=== PATIENT | male | born 1995 | race Caucasian/White ===

== ENCOUNTER 2020-05-26 12:43 | Emergency (ER) | payer OTHER ==
[~2020-05-26] VITALS: Ht 170.2 cm; Wt 76.0 kg
[2020-05-26] MEDS ORDERED: AMIT25TA17 PO (12:54)
--- OUTSIDE RECORDS SUMMARY | 2020-05-26 13:21 | CCD | Continuity of Care Document ---
Author Author Galo MILLER M.D. Organization Unknown Address [address] [place] [id number] Phone [phone] Care Team Providers Care Materials And Corrosion Engineer Name Role Phone Cinthya Armendariz M.D. AUTM [phone] Problems Active Problems Provider Date Postconcussion syndrome Danish Miller M.D. Onset: 021 Migraine Danish Miller M.D. Onset: 05/05/2020 Social History Type Date Description Comments Sex Unknown Tobacco Use Start: Unknown Patient has never smoked Allergies, Adverse Reactions, Alerts Description No Known Drug Allergies Medications Active Medications SIG Qnty Indications Ordering Provide r Date Prednisone 20mg Tablets take 60mg x2days, then 40mg x2 day, then 20mg x2days, then 10mg x2days. then stop. 13tabs Danish Miller M.D. 05/05/2020 Amitriptyline HCL 25mg Tablets take one tablet at bedtime 30tabs Danish Miller M.D. 05/05/19 21 Immunizations Description No Information Available Vital Signs Date Vital Result Comment 05/05/2020 12:46pm Respiratory Rate 12 /min Height 68 inches 5'8" Weight 160.00 lb BMI (Body Mass Index) 24.3 kg/m2 [place] Body Weight 154 lb Results Description No Information Available Procedures Description No Information Available Medical Devices Description No Information Available Encounters Description No Information Available Assessments Date Code Description Provider 05/05/2020 G43.719 Chronic migraine wit hout aura, intractable, without status migrainosus Danish Miller M.D. 05/05/2020 F07.81 Postconcussional syndrome Danish Miller M.D. 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 05/05/2020 R41.82 Altered mental status, unspecifi ed Danish Miller M.D. 05/05/2020 M54.2 Cervicalgia Danish Miller M.D. Plan of Treatment Future Appointment(s):* 06/23/2020 9:45 am - EEG at Main office - [place] Functional Status Description No Information Available Mental Status Description No Information Available Referrals Description No Information Available
--- OUTSIDE RECORDS SUMMARY | 2020-05-26 13:21 | CCD ---
Continuity of Care Document (CCD) Created on: 05/07/2020 Galo Loaiza External Reference #: [id number] : 1995 Sex: Male Author Author Galo MILLER M.D. Organization Unknown Address [address] [place] [id number] Phone [phone] Problems Active Problems Provider Date Postconcussion syndrome [...] 20mg x2days, then 10mg x2days. then stop. 13tarocael Miller M.D. 05/05/2020 Amitriptyline HCL 25mg Tablets take one tablet at bedtime 30tabs Danish Miller M.D. 05/05/19 21 Immunizations Description No Information Available Vital Signs Date Vital Result Comment 05/05/2020 12:46pm Respiratory Rate 12 /min Height 68 inches 5'8" Weight 160.00 lb BMI (Body Mass Index) 24.3 kg/m2 [place] Body Weight 154 lb Results Description No Information Available Procedures Description No Information Available Medical Devices Description No Information Available Encounters Type Date Location Provider Dx Diagnosis Office Visit 05/05[place]2020 12[place] G43.719 Chronic migraine w/o aura, intractable, w/o stat migr F07.81 Postconcussional syndrome R41.1 Anterograde amnesia R41.82 Altered mental status, unspe cified M54.2 Cervicalgia Assessments Date Code Description Provider 05/05/2020 G43.719 Chronic migraine wit hout aura, intractable, without status migrainosus Danish Miller M.D. 05/05/2020 F07.81 Postconcussional syndrome Danish Miller M.D. 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 05/05/2020 R41.82 Altered mental status, unspecifi ed Danish Miller M.D. 05/05/2020 M54.2 Cervicalgia Danish Miller M.D. Plan of Treatment Future Appointment(s):* 07/16/2020 11:30 am - Danish Miller M.D. at [facility] * 06/23/2020 9:45 am - EEG at [facility] Functional Status Description No Information Available Mental Status Description No Information Available Referrals Refer to Dr Reason for Referral Status Appt Date Danish Miller M.D. Created [address] [place] [address] [phone]
--- OUTSIDE RECORDS SUMMARY | 2020-05-26 13:21 | CCD ---
Author Author [facility] Organization [facility] Address Unknown Phone Unavailable Care Team Providers Care Meatcutter Name Role Phone Loli Rogers MD Unavailable Unavailable Loli Rogers MD Unavailable Unavailable Loli Rogers MD Unavailable Unavailable Loli Rogers MD Unavailable Unavailable Loli Rogers MD Unavailable Unavailable Loli Rogers MD Unavailable Unavailable Loli Rogers MD Unavailable Unavailable Loli Rogers MD Unavailable Unavailable Loli Rogers MD Unavailable Unavailable Loli Rogers MD Unavailable Unavailable Loli Rogers MD Unavailable Unavailable Loli Rogers MD Unavailable Unavailable Loli Rogers MD Unavailable Unavailable Loli Rogers MD Unavailable Unavailable Loli Rogers MD Unavailable Unavailable Loli Rogers MD Unavailable Unavailable Loli Rogers MD Unavailable Unavailable Loli Rogers MD Unavailable Unavailable Loli Rogers MD Unavailable Unavailable Loli Rogers MD Unavailable Unavailable Loli Rogers MD Unavailable Unavailable Loli Rogers MD Unavailable Unavailable Loli Rogers MD Unavailable Unavailable Loli Rogers MD Unavailable Unavailable Loli Rogers MD Unavailable Unavailable Loli Rogers MD Unavailable Unavailable Loli Rogers MD Unavailable Unavailable Loli Rogers MD Unavailable Unavailable Loli Rogers MD Unavailable Unavailable Loli Rogers MD Unavailable Unavailable Loli Rogers MD Unavailable Unavailable Loli Rogersah Unavailable Unavailable Loli Rogers MD Unavailable Unavailable Loli Rogers MD Unavailable Unavailable Loli Rogers MD Unavailable Unavailable Loli Rogers MD Unavailable Unavailable Loli Rogers MD Unavailable Unavailable Loli Rogers MD Unavailable Unavailable Loli Rogersah Unavailable Unavailable Loli Rogers MD Unavailable Unavailable Loli Rogers MD Unavailable Unavailable Loli Rogers MD Unavailable Unavailable Loli Rogers MD Unavailable Unavailable Loli Rogers MD Unavailable Unavailable Loli Rogers MD Unavailable Unavailable Loli Rogers MD Unavailable Unavailable Loli Rogers MD Unavailable Unavailable Loli Rogers MD Unavailable Unavailable Loli Rogers MD Unavailable Unavailable Loli Rogers MD Unavailable Unavailable Loli Rogers MD Unavailable Unavailable Loli Rogers MD Unavailable Unavailable Loli Rogers MD Unavailable Unavailable Loli Rogers MD Unavailable Unavailable Loli Rogers MD Unavailable Unavailable Loli Rogers MD Unavailable Unavailable Loli Rogers MD Unavailable Unavailable Loli Rogers MD Unavailable Unavailable Loli Rogers MD Unavailable Unavailable Loli Rogers MD Unavailable Unavailable Loli Rogers MD Unavailable Unavailable Loli Rogers MD Unavailable Unavailable Loli Rogers MD Unavailable Unavailable Loli Rogers MD Unavailable Unavailable Loli Rogers MD Unavailable Unavailable Loli Rogers MD Unavailable Unavailable Loli Rogers MD Unavailable Unavailable Loli Rogers MD Unavailable Unavailable Loli Rogers MD Unavailable Unavailable Loli Rogers MD Unavailable Unavailable Loli Rogers MD Unavailable Unavailable Loli Rogers MD Unavailable Unavailable Loli Rogers MD Unavailable Unavailable Loli Rogers MD Unavailable Unavailable Loli Rogers MD Unavailable Unavailable Loli Rogers MD Unavailable Unavailable Re-disclosure Warning The records that you are about to access may contain information from federally-assisted alcohol or drug abuse programs. If such information is present, then the following federally mandated warning applies: This information has been disclosed to you from records protected by federal confidentiality rules (42 CFR part 2). The federal rules prohibit you from making any further disclosure of this information unless further disclosure is expressly permitted by the written consent of the person to whom it pertains or as otherwise permitted by 42 CFR part 2. A general authorization for the release of medical or other information is NOT sufficient for this purpose. The Federal rules restrict any use of the information to criminally investigate or prosecute any alcohol or drug abuse patient.The records that you are about to access may contain highly sensitive health information, the redisclosure of which is protected by Article 27-F of the [facility] Public Health law. If you continue you may have access to information: Regarding HIV / AIDS; Provided by facilities licensed or operated by the [facility] Office of Mental Health; or Provided by the [facility] Office for People With Developmental Disabilities. If such information is present, then the following [facility] mandated warning applies: This information has been disclosed to you from confidential records which are protected by state law. State law prohibits you from making any further disclosure of this information without the specific written consent of the person to whom it pertains, or as otherwise permitted by law. Any unauthorized further disclosure in violation of state law may result in a fine or fpc sentence or both. A general authorization for the release of medical or other information is NOT sufficient authorization for further disc losure. Encounters Encounter Providers Location Date Indications Data Source(s ) Outpatient Attender: Danish Rogers MD Main office [facility] 05/05/2020 11:30:00 AM EST [facility] ([facility], ) Medications Medication Brand Name Start Date Product Form Dose Route Admi nistrative Instructions Pharmacy Instructions Status Indications Reaction Description Data Source(s) Prednisone 20 MG Oral Tablet Prednisone 05/05/2020 12:00:00 AM EST active [facility] ([facility]) Amitriptyline Hydrochloride 25 MG Oral Tablet Amitriptyline HCL 05/05/2020 12:00:00 AM EST active M [facility] ([facility] ) Insurance Providers Payer name Policy type / Coverage type Policy ID Covered democrat ID Covered democrat's relationship to ortiz Policy [place] Plan Information MERGED WITH [facility] ACTIVE DUTY [id number] Problems, Conditions, and Diagnoses Code Display Name Description Problem Type Effective Dates Data Source(s) [id number] Migraine Migraine Problem 05/05/2020 12:00:00 AM ES T [facility] ([facility], ) [id number] Postconcussion syndrome Postconcussion syndrome Proble m 05/05/2020 12:00:00 AM EST [facility] ([facility] ) Results ID Date Data Source [id number] 03/09/2020 02:57:00 PM EST [facility] Name Value Range Interpretation Code Description Data Nancy rce(s) Supporting Document(s) SARS coronavirus 2 RNA [facility] This lab was ordered by [facility] Laboratory and reported by [facility]. Procedure Vital Signs ID Date Data Source UNK Name Value Range Interpretation Code Description Data Source(s) [place] body weight 154 [lb_av] 154 [lb_av] ERICK T ([facility], ) Body mass index (BMI) [Ratio] 24.3 kg/m2 24.3 k g/m2 [facility]LAV ([facility], ) Body weight 160.00 [lb_av] 160.00 [lb_av] ERICK T ([facility], ) Body height 68 [in_i] 68 [in_i] [facility]ENT[facility]N ([facility], ) 5'8" Respiratory rate 12 /min 12 /min [facility], )
--- NOTE | 2020-05-26 14:01 | REP ---
INDICATION: trauma, r/o spinous process fx. COMPARISON: None. TECHNIQUE: Five views lumbosacral spine FINDINGS: There is no compression fracture or malalignment. There is normal lumbar lordosis. Disc spaces are well preserved. The posterior elements are intact. IMPRESSION: Negative lumbosacral spine series. <Electronically signed by Mic Barnett > 05/26/20 [id number]
[2020-05-26 14:16] VITALS: BP 135/81
== END 2020-05-26 14:20 | disposition home or self-care (01) ==
LOC: M ED 12:43
DX: S93.401A Sprain of unspecified ligament of right ankle, initial encounter (principal); W19.XXXA Unspecified fall, initial encounter; Y92.9 Unspecified place or not applicable; Y93.9 Activity, unspecified; Y99.9 Unspecified external cause status; R51.9 Headache, unspecified

== ENCOUNTER 2020-07-05 09:41 | Emergency (ER) | payer OTHER ==
[~2020-07-05] VITALS: Ht 170.2 cm; Wt 80.0 kg
[~2020-07-05 09:41] MED LIST: AMIT25TA17 PO
[2020-07-05] MEDS ORDERED: PRED1TABL PO (09:47)
[2020-07-05] MEDS ORDERED: ONDANSETRON 4MG/2ML VIAL IV ONE (11:25)
[2020-07-05] MEDS ORDERED: NS 1,000 ML IV ONE (11:25)
[2020-07-05] MEDS ORDERED: MORPHINE 4 MG/ML 1ML VIAL/SYRINGE (J2270) IV ONE (11:25)
[2020-07-05 12:27] LABS: BASO % 0.7 % (0.0-1.0); EOS # 0.3 10^3/uL (0.0-0.5); EOS % 5.8 % (0.0-3.0); HEMATOCRIT 47.3 % (42.0-52.0); HEMOGLOBIN 16.1 g/dl (13.5-17.5); LYMPH # 1.5 10^3/uL (1.5-5.0); LYMPH % 26.8 % (24.0-44.0); MEAN CORPUSCULAR HEMOGLOBIN 29.9 pg (27.0-33.0); MEAN CORPUSCULAR VOLUME 87.8 fl (80.0-96.0); MONO # 0.5 10^3/uL (0.0-0.8); MONO % 9.6 % (2.0-8.0); NEUTROPHILS # 3.1 10^3/uL (1.5-8.5); NEUTROPHILS % 56.7 % (36.0-66.0); PLATELET COUNT, AUTOMATED 216 10^3/uL (150-450); RED BLOOD COUNT 5.39 10^6/uL (4.30-6.10); WHITE BLOOD COUNT 5.5 10^3/uL (4.0-10.0)
[2020-07-05 12:51] LABS: ALBUMIN 4.2 GM/DL (3.2-5.2); ALT/SGPT 35 U/L (12-78); BILIRUBIN,DIRECT 0.1 MG/DL (0.0-0.2); BILIRUBIN,TOTAL 0.5 MG/DL (0.2-1.0); BLOOD UREA NITROGEN 8 MG/DL (7-18); CALCIUM LEVEL 8.9 MG/DL (8.5-10.1); CARBON DIOXIDE LEVEL 29 MEQ/L (21-32); CHLORIDE LEVEL 108 MEQ/L (98-107); CREATININE FOR GFR 0.74 MG/DL (0.70-1.30); GLOMERULAR FILTRATION RATE > 60.0 (>60); GLUCOSE, FASTING 89 MG/DL (70-100); POTASSIUM SERUM 4.4 MEQ/L (3.5-5.1); SODIUM LEVEL 141 MEQ/L (136-145); TOTAL PROTEIN 7.6 GM/DL (6.4-8.2)
[2020-07-05] MEDS ORDERED: ISOVUE-370 76% 100ML VIAL As Ordered ONE (12:57)
--- NOTE | 2020-07-05 13:33 | REP ---
INDICATION: rlq pain, r/o appy COMPARISON: None. TECHNIQUE: CT Scan of the abdomen and pelvis was performed with intravenous administration of 100 cc of Isovue 370, without oral contrast. Sagittal and coronal reconstruction images are performed. FINDINGS: Lung bases: Unremarkable. Liver: Normal Gallbladder: Unremarkable. Spleen: Normal. Adrenals: Normal. Pancreas: Normal. Kidneys: A cyst in the upper pole the left kidney measures 2.6 cm in diameter.. Small and large bowel: Unremarkable. Free fluid: None. Abdominal aorta: No aneurysm or dissection. Adenopathy: None. Appendix: Not inflamed. Osseous structures: Unremarkable. Pelvis: No mass. IMPRESSION: Negative CT abdomen and pelvis. <Electronically signed by Mic Barnett > 07/05/20 [id number]
[2020-07-05] MEDS ORDERED: SIME180C PO (13:53)
[2020-07-05 14:12] VITALS: BP 129/73
== END 2020-07-05 14:13 | disposition home or self-care (01) ==
LOC: M ED 09:41
DX: R10.31 Right lower quadrant pain (principal); R50.9 Fever, unspecified; Z79.899 Other long term (current) drug therapy
CPT/HCPCS: 36415; 74177; 80048; 80076; 85025; 96361; 96374; 96375; 99284; J2270; J2405; Q9967; U0003

== ENCOUNTER 2020-08-14 17:35 | Inpatient (IN) | payer OTHER ==
[~2020-08-14] VITALS: Ht 170.2 cm; Wt 74.2 kg
[~2020-08-14 17:35] MED LIST changes: +PRED1TABL PO; +SIME180C25 PO
[2020-08-14 19:00] LABS: HEMATOCRIT 45.9 % (42.0-52.0); HEMOGLOBIN 15.7 g/dl (13.5-17.5); MEAN CORPUSCULAR HEMOGLOBIN 29.9 pg (27.0-33.0); MEAN CORPUSCULAR HGB CONC 34.2 g/dl (32.0-36.5); MEAN CORPUSCULAR VOLUME 87.4 fl (80.0-96.0); PLATELET COUNT, AUTOMATED 240 10^3/uL (150-450); RED BLOOD COUNT 5.25 10^6/uL (4.30-6.10); WHITE BLOOD COUNT 5.9 10^3/uL (4.0-10.0)
[2020-08-14 19:23] LABS: AMPHETAMINES LEVEL URINE NEGATIVE (NEGATIVE); BARBITURATES URINE NEGATIVE (NEGATIVE); BENZODIAZEPINES URINE NEGATIVE (NEGATIVE); CANNABINOIDS URINE NEGATIVE (NEGATIVE); COCAINE METABOLITE URINE NEGATIVE (NEGATIVE); METHADONE URINE NEGATIVE (NEGATIVE); OPIATES URINE NEGATIVE (NEGATIVE); PHENCYCLIDINE URINE NEGATIVE (NEGATIVE)
[2020-08-14 19:33] LABS: ACETAMINOPHEN LEVEL < 2.0 UG/ML (10.0-30.0); ALBUMIN 4.1 GM/DL (3.2-5.2); ALT/SGPT 36 U/L (12-78); BILIRUBIN,DIRECT 0.2 MG/DL (0.0-0.2); BILIRUBIN,TOTAL 0.5 MG/DL (0.2-1.0); BLOOD UREA NITROGEN 10 MG/DL (7-18); CALCIUM LEVEL 8.3 MG/DL (8.5-10.1); CARBON DIOXIDE LEVEL 29 MEQ/L (21-32); CHLORIDE LEVEL 109 MEQ/L (98-107); ETHYL ALCOHOL (ETHANOL) < 0.003 % (0.000-0.010); GLOMERULAR FILTRATION RATE > 60.0 (>60); GLUCOSE, FASTING 91 MG/DL (70-100); POTASSIUM SERUM 3.7 MEQ/L (3.5-5.1); SALICYLATE LEVEL < 1.7 MG/DL (5.0-30.0); SODIUM LEVEL 143 MEQ/L (136-145); TOTAL PROTEIN 7.5 GM/DL (6.4-8.2)
[2020-08-14] MEDS ORDERED: AMITRIPTYLINE 25MG TABLET PO ONE (20:20)
[2020-08-14] MEDS ORDERED: ACETAMINOPHEN 325 MG TAB PO ONE (20:20)
[2020-08-14] MEDS ORDERED: PREDPOW10 (20:23)
[2020-08-14 21:00] LABS: RSV AMPLIFICATION NEGATIVE (NEGATIVE)
[2020-08-14] MEDS ORDERED: MAALOX 30 ML SUSP *UDC PO PRN (21:25)
[2020-08-14] MEDS ORDERED: ACETAMINOPHEN TAB 650MG DOSE (2X325MG) PO PRN (21:25)
[2020-08-14] MEDS ORDERED: MOM 30ML SUSPENSION UDC PO PRN (21:25)
[2020-08-14 22:29] VITALS: BP 164/84
--- NOTE | 2020-08-15 12:55 | HPEPDOC ---
[facility] Medical History & Physical Date of Admission August 14, 2020 Date of Service: August 15, 2020 History and Physical Chief complaint: Who presented to the emergency room with complaints of suicidal ideation History of present illness: Patient is a 25-year-old male with a past medical history traumatic brain injury 1 year ago who presented to the emergency room with suicidal ideation. Patient was admitted to the inpatient mental health unit under the care of psychiatry. Currently being managed by psychiatry. Hospitalist service was consulted for medical screening evaluation. Patient reports a headache. Denies any nausea, vomiting, chest pain, shortness breath, palpitations, abdominal pain consultation, diarrhea, or urinary discomfort. Patient was that he takes prednisone for over a year, but is unsure of the dose. He reports that it has been prescribed by neurology. Past Medical History: Traumatic brain injury 1 year ago Past Surgical History: Denies any prior surgeries Allergies: See below Medications: See below Family History: - No history of malignancies Social History: - Denies the use of alcohol or illicit drugs; patient reports that he is a smoker - Denies recent travel or sick contacts - Lives with - Occupation; [email or web address] Review of Systems: 10 point review of systems complete, all negative otherwise stated in HPI Physical exam: - Vitals: BP [164/84], HR [65], RR [18], Sat [100%RA], Temp [96.8F] - General: Lying in bed, Speaking in full sentences, AAOx3 - HEENT: NC, AT, PERRLA - CVS: RRR, +S1S2 - Lungs: Fair air entry bilaterally, No appreciable wheezing / rales / rhonchi - Abdomen: Soft, Non-distended, Non-tender - Extremities: No lower extremity edema, No calf tenderness - Neuro: No focal motor or sensory deficit - Skin: No visible rashes Labs: See below Imaging: See below EKG: See below Assessment and Plan: Suicidal ideation - Patient was admitted to inpatient mental health unit under the care of psychiatry - Currently being managed by psychiatry Reported traumatic brain injury - Patient reports a head trauma about 1 year ago - Patient reports that he has been on prednisone for one year. He is unsure of the dose - Patient is currently off prednisone; will continue to monitor for symptoms of adrenal insufficiency - Will have outpatient follow-up with neurology DVT prophylaxis - Will continue with early ambulation Female tax specialist was present for the duration of this history and physical examination Thank you for this consultation; hospitalist service will now sign off, please re-consult as needed Vital Signs Vital Signs Date Time Temp Pulse Resp B/P (MAP) Pulse Ox O2 Delivery O2 Flow Rate FiO2 08/14/20 22:29 96.8 65 18 164/84 (110) 100 Room Air Laboratory Data Labs 24H Laboratory Tests 2 08/14/20 18:46: Nucleated Red Blood Cells % (auto) 0.0, Anion Gap 5L, Glomerular Filtration Rate > 60.0, Calcium Level 8.3L, Total Bilirubin 0.5, Direct Bilirubin 0.2, Aspartate Amino Transf (AST/SGOT) 17, Alanine Aminotransferase (ALT/SGPT) 36, Alkaline Phosphatase 83, Total Protein 7.5, Albumin 4.1, Albumin/Globulin Ratio 1.2, Thyroid Stimulating Hormone (TSH) 3.040, Salicylates Level < 1.7L, Urine Opiates Screen NEGATIVE, Urine Methadone Screen NEGATIVE, Acetaminophen Level < 2.0L, Urine Barbiturates Screen NEGATIVE, Urine Phencyclidine Screen NEGATIVE, Urine Amphetamines Screen NEGATIVE, Urine Benzodiazepines Screen NEGATIVE, Urine Cocaine Metabolite Screen NEGATIVE, Urine Cannabinoids Screen NEGATIVE, Ethyl Alcohol Level < 0.003 08/14/20 20:10: Coronavirus (COVID-19)(PCR) NEGATIVE, Influenza Type A (RT-PCR) NEGATIVE, I nfluenza Type B (RT-PCR) NEGATIVE, Respiratory Syncytial Virus (PCR) NEGATIVE CBC/BMP Laboratory Tests 08/14/20 18:46 Home Medications Scheduled Amitriptyline HCl (Amitriptyline HCl) 25 Mg Tablet, 25 MG PO QPM Miscellaneous Medications [Prednisone] PT STATES TAKES PREDNISONE BUT DOESNT KNOW DOSE. [facility] CLOSED UNTIL 08/16/20 Allergies Coded Allergies: No Known Allergies (Unverified , 05/26/20) JÚNIOR DE GUZMAN MD August 15, 2020 12:55
[2020-08-15 16:21] VITALS: BP 124/75
[2020-08-15] MEDS: ESCITALOPRAM OXALATE 5MG TABLET (LEXAPRO) PO SCH (16:57)
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
[2020-08-15] MEDS: traZODone 50 MG TAB PO PRN (20:55)
[2020-08-15] MEDS: AMITRIPTYLINE 25MG TABLET PO SCH (20:55)
[2020-08-16 07:13] VITALS: BP 117/63
[2020-08-16] MEDS: ESCITALOPRAM OXALATE 5MG TABLET (LEXAPRO) PO SCH (09:00)
[2020-08-16 18:00] VITALS: BP 148/83
[2020-08-16] MEDS: traZODone 50 MG TAB PO PRN (20:22)
[2020-08-16] MEDS: AMITRIPTYLINE 25MG TABLET PO SCH (20:22)
[2020-08-17 06:27] VITALS: BP 126/55
[2020-08-17] MEDS: ESCITALOPRAM OXALATE 5MG TABLET (LEXAPRO) PO SCH (08:39)
--- NOTE | 2020-08-17 11:39 | MHIPN ---
[facility] PSYCHIATRIC PROGRESS NOTE DATE: 08/16/2020 HISTORY OF PRESENT ILLNESS: The patient today states that he is feeling less depressed. He admits that he did voice suicidal ideation after he was sent to the [facility]. The patient states that he had been very stressed out with work and also he and his had had some disagreement on the day prior to admission, but he is saying that he is feeling better today. He thinks maybe being away from the stress of work is helping him. MENTAL STATUS EXAM: This patient is alert and oriented times 3. Eye contact fair. Psychomotor activity is normal. He is verbally spontaneous. He says his mood is better. Affect was appropriate to mood. He is not psychotic, suicidal or homicidal. Concentration is fair. Memory intact. Insight and judgment is fair. DIAGNOSES: 1. Other specified depressive disorder. 2. Traumatic brain injury by history. 3. Rule out major depression disorder and mood disorder due to head injury. TREATMENT PLAN: At this point the patient states that he is feeling better. We will continue to monitor the patient for continued elevation and stabilization of his mood and continued resolution of suicidal ideation and we will titrate his medications as indicated.
[2020-08-17 18:00] VITALS: BP 148/79
[2020-08-17] MEDS: traZODone 50 MG TAB PO PRN (20:57)
[2020-08-17] MEDS: AMITRIPTYLINE 25MG TABLET PO SCH (20:57)
[2020-08-18 07:15] VITALS: BP 150/77
[2020-08-18] MEDS: ESCITALOPRAM OXALATE 5MG TABLET (LEXAPRO) PO SCH (08:11)
--- NOTE | 2020-08-18 11:54 | MHIPN ---
[facility] PSYCHIATRIC PROGRESS NOTE DATE OF SERVICE: 08/17/2020 HISTORY OF PRESENT ILLNESS: Patient today states that he is doing good, he says he slept good and he tells me he is not feeling depressed. The patient is not very reliable; however. Yesterday he told me that everything was fine between him and his and he minimized all the events prior to admission. It seems that the ; however, does want to do much with him as she is not communicating much with him and the patient also continues to be very vague and continues to say he has no idea why CPS was involved. MENTAL STATUS EXAM: This patient is alert and oriented times 3. Eye contact fair. Psychomotor activity is normal. He is verbally spontaneous. He says his mood is better. Affect was appropriate to mood. He is not psychotic, suicidal or homicidal. Concentration is fair. Memory intact. Insight and judgment is fair. DIAGNOSES: 1. Other specified depressive disorder. 2. Traumatic brain injury by history. 3. Rule out major depression disorder and mood disorder due to head injury. PLAN: The technical planner has finally set up a meeting with CPS to come and see the patient tomorrow morning. He also continues to minimize the fact that he did voice suicidal thoughts. As per the technical planner note this morning he keeps on talking about the fact that he was playing some kind of video game when the recorded him saying he was suicidal, but yesterday he then told me that after he was taken to the [facility] that he did voice suicidal ideation so we will continue to monitor him because at this point he is not very reliable and he might be minimizing symptoms in order to be discharged. DAV
[2020-08-18 17:43] VITALS: BP 118/63
[2020-08-18] MEDS: AMITRIPTYLINE 25MG TABLET PO SCH (21:00)
[2020-08-19 06:13] VITALS: BP 133/70
--- NOTE | 2020-08-19 08:19 | MHIPN ---
[facility] PROGRESS NOTE DATE: 08/18/2020 The patient today tells me that he is doing good. He says he slept good and he is denying any suicidal thoughts. He says that he met with Child Protective Services and they have no concerns about him returning to his home. The patient tells me today that the did communicate to him that she wants him back in the home, but he says it is to help with the children, and he has no idea where their relationship stands. MENTAL STATUS EXAMINATION: He is alert and oriented times three. Eye contact is good. Psychomotor activity is normal. There is no formal thought disorder noted. He says his mood is better. Affect is constricted but appropriate to mood. He is not psychotic. He is denying suicidal or homicidal ideations. Concentration is fair. Memory intact. Insight and judgment fair. DIAGNOSES: Other specified depressive disorder. Traumatic brain injury by history. Rule out major depressive disorder. TREATMENT PLAN: At this point, the patient will continue to be evaluated for continued elevation and stabilization of his mood and continued resolution of suicidal ideations and we will plan on discharging the patient tomorrow. Apparently, according to the patient's command, the patient will be going, at least for a few days, to the [facility] before they allow him to go back home.
[2020-08-19] MEDS: ESCITALOPRAM OXALATE 5MG TABLET (LEXAPRO) PO SCH (08:39)
[2020-08-19] MEDS ORDERED: TRAZ-252 PO (09:54)
[2020-08-19] MEDS ORDERED: LEXA5TAB13 PO (09:54)
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
== END 2020-08-19 10:57 | disposition home or self-care (01) | DRG 885 ==
LOC: M ED 17:35 → EDBD 17:35 → M ED INP 21:25 → M PSY 22:15
PROVIDERS: ADMIT Psychiatry & Neurology Psychiatry; ATTEND Psychiatry & Neurology Psychiatry
DX: F32.89 Other specified depressive episodes (principal); R45.851 Suicidal ideations; R51.9 Headache, unspecified; F17.210 Nicotine dependence, cigarettes, uncomplicated; Z87.820 Personal history of traumatic brain injury; Z79.899 Other long term (current) drug therapy; Z20.822 Contact with and (suspected) exposure to COVID-19; Z86.16 Personal history of COVID-19; Z63.8 Other specified problems related to primary support group; Z62.810 Personal history of physical and sexual abuse in childhood; Z63.0 Problems in relationship with spouse or partner; Z56.6 Other physical and mental strain related to work

== ENCOUNTER 2020-08-31 04:57 | Emergency (ER) | payer OTHER ==
[~2020-08-31] VITALS: Ht 170.2 cm; Wt 72.7 kg
[~2020-08-31 04:57] MED LIST changes: +LEXA5TAB13 PO; +PREDPOW10; +TRAZ-252 PO
[2020-08-31] MEDS ORDERED: KETOROLAC 30 MG/ML 1ML VIAL IV ONE (06:20)
[2020-08-31] MEDS ORDERED: NS 1,000 ML IV ONE (06:20)
[2020-08-31] MEDS ORDERED: diphenhydrAMINE 50MG/ML VIAL (J1200) IV ONE (06:20)
[2020-08-31] MEDS ORDERED: METOCLOPRAMIDE INJ 10MG/2ML VIAL (J2765 PER 1) IV ONE (06:20)
[2020-08-31 08:45] VITALS: BP 124/69
== END 2020-08-31 08:53 | disposition home or self-care (01) ==
LOC: M ED 04:57
DX: G43.909 Migraine, unspecified, not intractable, without status migrainosus (principal); Z87.820 Personal history of traumatic brain injury; F17.200 Nicotine dependence, unspecified, uncomplicated; Z79.899 Other long term (current) drug therapy
CPT/HCPCS: 36415; 96361; 96374; 96375; 99284; J1200; J1885; J2765